=== PATIENT | male | born 1950 | race Caucasian/White ===

== ENCOUNTER 2022-03-08 19:01 | Emergency (ER) | payer OTHER, SELFPAY ==
[2022-03-08 19:24] VITALS: BP 150/74; PULSE 80; RESP 19; TEMP 36.9; O2SAT 95; BMI 33.5
--- NOTE | 2022-03-08 19:34 | HMH.EDUTC ---
[facility] Disposition Clinical Impression: Sinusitis Qualifiers: Sinusitis location: maxillary Chronicity: acute Recurrence: non-recurrent Qualified Code(s): J01.00 - Acute maxillary sinusitis, unspecified Disposition: Home, Self-Care Condition on Discharge: Good Instructions: DI for Sinusitis Additional Instructions: Take all meds as prescribed until gone Follow up with [facility] next week Prescriptions: Cefdinir [Omnicef 300mg Capsule] 300 mg PO BID #20 cap Transmission Status: Pending to [id number] predniSONE [Prednisone 20mg Tab] 20 mg PO BID 5 Days #10 tab [facility]: [id number] Time of Disposition: 20:27 Medical Decision Making - Radhames Inquiry Pt receiving controlled substance: No Vital Signs: 03/08/22 19:24 Temperature 98.4 F Temperature Source Oral Pulse Rate [Left Radial] 80 Respiratory Rate 19 Blood Pressure [Right Arm] 150/74 H Blood Pressure Mean [Right Arm] 99 02 Sat by Pulse Oximetry 95 - Radiology Data #1 Image(s): Chest Image Reviewed: Yes I have reviewed radiologist's interpretation Preliminary Findings: Normal/NAD PROCEDURE INFORMATION: Exam: XR Chest Exam date and time: 03/08/2022 7:41 PM Age: 71 years old Clinical indication: Cough and other: Congestion; Prior surgery; Surgery date: 6+ months; Surgery type: Open heart surgery 2014; Additional info: Cough congestion TECHNIQUE: Imaging protocol: XR of the chest. Views: 2 views. COMPARISON: No relevant prior studies available. FINDINGS: Lungs: No evidence of acute cardiopulmonary disease. Pleural spaces: Unremarkable. No pleural effusion. No pneumothorax. Heart/Mediastinum: Prominent hiatal hernia. Sternotomy residuals. Evidence of valve replacement. Bones/joints: Unremarkable. IMPRESSION: No evidence of acute cardiopulmonary disease. [facility] HPI - General Stated complaint: soa Time Seen by Provider: 03/08/22 19:34 Source of Information: Patient Description of Symptoms (Recalled from Triage Doc. by RN): patient comes in today for cough and congestion. patient complains of symptoms have been going on for 3 weeks. HEENT Symptoms (Recalled from RN notes): No Resp Symptoms (Recalled from RN notes): Yes Skin Symptoms (Recalled from RN notes): No MS Symptoms (Recalled from RN notes): No Functional Status (Recalled from RN notes): wnl - History of Present Illness Provider Complaint: 3 week history of cough, congestion. States started with sore throat. Nose runs constantly. Ears have been itchy and full, but not painful. Has had productive cough. States it was black at one point. No fever. Does not smoke. No history of lung disease. Took a nap at his cousin's house today and cousin told him he sounded short of breath, rattled while he slept. Also has had loose stool today. No vomiting. Onset (ago): week(s) (3) Location: chest Relieving factors: none Exacerbating factors: none Associated symptoms: cough, shortness of breath Treatments prior to arrival: none - Related Data Previous Rx's Medication Instructions Recorded Cefdinir [Omnicef 300mg Capsule] 300 mg PO BID #20 cap 03/08/22 predniSONE [Prednisone 20mg 20 mg PO BID 5 Days #10 tab 03/08/22 Tab] Allergies Allergy/AdvReac Type Severity Reaction Status Date / Time Gadolinium-Containing Allergy Verified 03/08/22 19:28 Contrast Medi Iodinated Contrast Media Allergy Verified 03/08/22 19:28 - Worker's Comp Is this a Worker's Comp case?: No [facility] History - Hepatitis A Screen Attestation statement:: This patient has been screened for Hepatitis A risk factors. I have reviewed the patient's past medical history: Yes ROS Obtained: Yes All systems reviewed & no additional complaints - ENT Ears, Nose, Mouth, and Throat: Reports nasal congestion, Reports sore throat - Respiratory Respiratory: Reports chest congestion, Reports cough - Gastrointestinal
[2022-03-08 20:34] VITALS: BP 150/74; PULSE 80; RESP 19; TEMP 36.9
== END 2022-03-08 20:35 | disposition home or self-care (01) ==
PROVIDERS: Emergency Provider Physician Assistant
DX: J01.00 Acute maxillary sinusitis, unspecified (principal)
CPT/HCPCS: 71046; 96372; 99212; G0463; J0696; J1040